=== PATIENT | female | born 1995 | race Caucasian/White ===

== ENCOUNTER 2022-03-28 15:24 | Emergency (ER) | payer OTHER ==
[2022-03-28 15:42] VITALS: BP 119/76; PULSE 70; RESP 20; TEMP 98.2; BMI 26.9
[2022-03-28] MEDS ORDERED: SODIUM CHLORIDE 1,000 ML IV STA (16:10)
[2022-03-28] MEDS ORDERED: ACETAMINOPHEN 500 MG TABLET (FP) PO ONE (16:10)
[2022-03-28] MEDS ORDERED: ACETAMINOPHEN 500 MG TABLET (FP) ONE (16:22)
[2022-03-28 17:23] LABS: URINE APPEARANCE CLEAR; URINE BILIRUBIN NEGATIVE (NEGATIVE); URINE COLOR YELLOW; URINE GLUCOSE (UA) NEGATIVE (NEGATIVE); URINE KETONE NEGATIVE (NEGATIVE); URINE LEUK ESTERASE NEGATIVE (NEGATIVE); URINE NITRITE NEGATIVE (NEGATIVE); URINE PROTEIN NEGATIVE (NEGATIVE); URINE UROBILINOGEN 0.2 mg/dL (0.2-1.0)
[2022-03-28 17:25] LABS: BASO % 1.1 % (0-2.0); EOS % 0.9 % (0-4.5); HEMOGLOBIN 13.5 GM/dL (10.7-15.3); LYMPH % 32.5 % (8-40); MCH 30.7 pg (25.7-33.7); MCHC 32.9 g/dl (32.0-36.0); MEAN CELL VOLUME 93.1 fl (80-96); MEAN PLT VOLUME 9.6 fl (7.5-11.1); MONO % 9.5 % (3.8-10.2); PLATELET COUNT 302 10^3/uL (134-434); RDW 14.4 % (11.6-15.6); WHITE BLOOD COUNT 7.6 K/mm3 (4.0-10.0)
[2022-03-28 17:26] LABS: HCG,QUALITATIVE URINE Negative
[2022-03-28 17:42] LABS: BLOOD UREA NITROGEN 7.5 mg/dL (7-18); CALCIUM 9.4 mg/dL (8.5-10.1)
[2022-03-28 17:46] LABS: CREATININE 0.6 mg/dL (0.55-1.3)
== END 2022-03-28 19:16 | disposition home or self-care (01) ==
LOC: JER 15:24
PROC: 3E0337Z Introduction of Electrolytic and Water Balance Substance into Peripheral Vein, Percutaneous Approach (ICD-10-PCS; principal; 2022-03-28)
DX: N20.0 Calculus of kidney (principal)
CPT/HCPCS: 36415; 74176-TC; 80048; 81003; 84703; 85025; 87086; 99285-25

== ENCOUNTER 2022-05-06 12:39 | Emergency (ER) | payer OTHER ==
[2022-05-06 12:44] VITALS: BP 121/84; PULSE 72; RESP 18; TEMP 98.6; BMI 27.4
[2022-05-06] MEDS ORDERED: KETOROLAC TROMETHAMINE 30 MG/1 ML VIAL IVPUSH ONE (14:55)
[2022-05-06] MEDS ORDERED: KETOROLAC TROMETHAMINE 30 MG/1 ML VIAL ONE (15:03)
[2022-05-06 15:40] LABS: HCG,QUALITATIVE URINE Negative
[2022-05-06 15:41] LABS: BASO % 0.6 % (0-2.0); EOS % 0.6 % (0-4.5); HEMATOCRIT 43.8 % (32.4-45.2); HEMOGLOBIN 14.2 GM/dL (10.7-15.3); LYMPH % 27.2 % (8-40); MCH 29.5 pg (25.7-33.7); MCHC 32.3 g/dl (32.0-36.0); MEAN CELL VOLUME 91.1 fl (80-96); MEAN PLT VOLUME 9.4 fl (7.5-11.1); MONO % 5.2 % (3.8-10.2); NEUT % 66.4 % (42.8-82.8); PLATELET COUNT 303 10^3/uL (134-434); RBC 4.81 M/mm3 (3.60-5.2); RDW 13.5 % (11.6-15.6); WHITE BLOOD COUNT 9.2 K/mm3 (4.0-10.0)
[2022-05-06 15:42] LABS: EPI CELLS 14 /uL (0-25.1); HYALINE CASTS 2 /uL (0-3.1); URINE APPEARANCE CLEAR; URINE BACTERIA 1376 /uL (0-1359); URINE BILIRUBIN NEGATIVE (NEGATIVE); URINE COLOR YELLOW; URINE GLUCOSE (UA) NEGATIVE (NEGATIVE); URINE KETONE TRACE (NEGATIVE); URINE LEUK ESTERASE NEGATIVE (NEGATIVE); URINE NITRITE NEGATIVE (NEGATIVE); URINE PROTEIN NEGATIVE (NEGATIVE); URINE RBC 52 /uL (0-23.9); URINE UROBILINOGEN 0.2 mg/dL (0.2-1.0); URINE WBC 26 /uL (0-25.8)
[2022-05-06 16:07] LABS: ALBUMIN 3.9 g/dl (3.4-5.0); CALCIUM 9.4 mg/dL (8.5-10.1)
[2022-05-06 16:08] LABS: BLOOD UREA NITROGEN 9.2 mg/dL (7-18)
[2022-05-06 16:11] LABS: CREATININE 0.6 mg/dL (0.55-1.3)
[2022-05-06 16:12] LABS: BILIRUBIN,TOTAL 0.5 mg/dL (0.2-1); TOT PROT 7.6 g/dl (6.4-8.2)
== END 2022-05-06 16:43 | disposition home or self-care (01) ==
LOC: JER 12:39
PROC: 3E0233Z Introduction of Anti-inflammatory into Muscle, Percutaneous Approach (ICD-10-PCS; principal; 2022-05-06)
DX: R00.2 Palpitations (principal); G89.29 Other chronic pain
CPT/HCPCS: 36415; 72100-TC-FY; 80053; 81003; 84484; 84703; 85025; 87086; 93005; 93010; 99285-25

== ENCOUNTER 2022-05-10 11:32 | Day surgery (SDC) | payer OTHER ==
[2022-05-10] MEDS ORDERED: KETOROLAC TROMETHAMINE 15 MG/ML VIAL IM ONE (12:17)
[2022-05-10] MEDS ORDERED: KETOROLAC TROMETHAMINE 30 MG/1 ML VIAL IVPUSH ONE (12:18)
[2022-05-10] MEDS ORDERED: ACETAMINOPHEN 1000 MG/100 ML BAG IVPB ONE (12:49)
[2022-05-10] MEDS ORDERED: ACETAMINOPHEN INJECTION 100 ML IVPB ONE (13:06)
[2022-05-10 13:51] LABS: BASO % 0.8 % (0-2.0); EOS % 0.4 % (0-4.5); HEMATOCRIT 41.4 % (32.4-45.2); HEMOGLOBIN 13.5 GM/dL (10.7-15.3); LYMPH % 17.2 % (8-40); MCH 29.6 pg (25.7-33.7); MCHC 32.7 g/dl (32.0-36.0); MEAN CELL VOLUME 90.7 fl (80-96); MEAN PLT VOLUME 9.6 fl (7.5-11.1); MONO % 5.4 % (3.8-10.2); NEUT % 76.2 % (42.8-82.8); PLATELET COUNT 310 10^3/uL (134-434); RBC 4.57 M/mm3 (3.60-5.2); RDW 13.4 % (11.6-15.6); WHITE BLOOD COUNT 8.9 K/mm3 (4.0-10.0)
[2022-05-10 14:20] LABS: BLOOD UREA NITROGEN 8.4 mg/dL (7-18); CALCIUM 9.2 mg/dL (8.5-10.1)
[2022-05-10 14:21] LABS: ALBUMIN 3.7 g/dl (3.4-5.0)
[2022-05-10 14:24] LABS: CREATININE 0.8 mg/dL (0.55-1.3)
[2022-05-10 14:25] LABS: BILIRUBIN,TOTAL 0.4 mg/dL (0.2-1)
[2022-05-10 14:30] LABS: INR 1.25 (0.83-1.09); PROTHROMBIN TIME (PATIENT) 14.4 SEC (9.7-13.0)
[2022-05-10] MEDS ORDERED: MIDAZOLAM HCL 2 MG/2 ML SINGLE DOSE VIAL ONE (17:48)
[2022-05-10] MEDS ORDERED: PROPOFOL 40 ML ONE (17:48)
[2022-05-10] MEDS ORDERED: LIDOCAINE HCL/PF 2% SDV 5ML VIAL ONE (18:35)
[2022-05-10] MEDS ORDERED: GLYCOPYRROLATE 0.2 MG/1 ML VIAL ONE ×2 (18:35→18:45)
[2022-05-10] MEDS ORDERED: GENTAMICIN SO4 80 MG/2 ML VIAL ONE (18:36)
[2022-05-10] MEDS ORDERED: ceFAZolin SODIUM 1 GM VIAL ONE (18:36)
[2022-05-10] MEDS ORDERED: GENTAMICIN 80MG PREMIX BAG IVPB ONE (18:39)
[2022-05-10] MEDS ORDERED: ceFAZolin SODIUM 1 GM VIAL IVPB ONE ×2 (18:39)
[2022-05-10] MEDS ORDERED: KETOROLAC TROMETHAMINE 30 MG/1 ML VIAL ONE (18:45)
[2022-05-10] MEDS ORDERED: DEXAMETHASONE SOD PHOSPHATE 4 MG/1 ML VIAL ONE (18:45)
[2022-05-10] MEDS ORDERED: ONDANSETRON 4 MG/2 ML VIAL IVPUSH PRN (19:44)
[2022-05-10] MEDS ORDERED: LACTATED RINGERS SOLUTION 1,000 ML IV SCH (19:45)
[2022-05-10 20:52] VITALS: BMI 26.9
[2022-05-10] MEDS: ACETAMINOPHEN 325 MG TABLET (FP) PO PRN (21:54)
[2022-05-11] MEDS: ACETAMINOPHEN 325 MG TABLET (FP) PO PRN (01:40)
[2022-05-11 06:55] VITALS: RESP 18
[2022-05-11 10:09] VITALS: BP 113/71; PULSE 51; TEMP 98
[2022-05-20 15:07] LABS: CA OXALATE MONOHYDR. 70 % (.); SIZE 4x3 mm (.); WEIGHT 23 mg (.)
== END 2022-05-11 13:54 | disposition home or self-care (01) ==
LOC: JOR 11:32 → JASUSAT 18:24 → J5S 20:19 → JASUSAT 05-11 13:54
PROVIDERS: ATTEND Urology
PROC: 3E033GC Introduction of Other Therapeutic Substance into Peripheral Vein, Percutaneous Approach (ICD-10-PCS; principal; 2022-05-10 17:00)
DX: N13.2 Hydronephrosis with renal and ureteral calculous obstruction (principal)
CPT/HCPCS: 36415; 74176-TC; 76000-TC-FY; 80053; 82360; 82962; 84703; 85025; 85610; 86850; 86900; 86901; 88300-TC; 94760; 99285-25; C2617; C9803-CS; U0003; U0005

== ENCOUNTER 2024-04-20 13:45 | Emergency (ER) | payer OTHER ==
[2024-04-20 13:52] VITALS: RESP 18
[2024-04-20] MEDS ORDERED: methylPREDNISolone NA SUCC 125 MG/2 ML VIAL ONE (14:39)
[2024-04-20] MEDS ORDERED: FAMOTIDINE 20 MG/50 ML IVPB 20 MG/50 ML MG IVPB ONE (14:39)
[2024-04-20] MEDS: SODIUM CHLORIDE 1,000 ML IV STA (15:00)
[2024-04-20] MEDS: FAMOTIDINE 20 MG/50 ML IVPB 20 MG/50 ML MG IVPB ONE (15:01)
[2024-04-20] MEDS: methylPREDNISolone NA SUCC 125 MG/2 ML VIAL IVPB ONE (15:01)
[2024-04-20 15:50] VITALS: BP 128/79; PULSE 60; TEMP 98.3
== END 2024-04-20 16:08 | disposition home or self-care (01) ==
LOC: JERFT 13:45 → JER 13:45 → JERFT 16:08
PROC: 3E033GC Introduction of Other Therapeutic Substance into Peripheral Vein, Percutaneous Approach (ICD-10-PCS; principal; 2024-04-20)
PROC: 3E033GC Introduction of Other Therapeutic Substance into Peripheral Vein, Percutaneous Approach (ICD-10-PCS; 2024-04-20)
PROC: 3E033GC Introduction of Other Therapeutic Substance into Peripheral Vein, Percutaneous Approach (ICD-10-PCS; 2024-04-20)
DX: L50.0 Allergic urticaria (principal); R07.0 Pain in throat
CPT/HCPCS: 96365; 96375; 99284-25

== ENCOUNTER 2024-04-21 04:04 | Emergency (ER) | payer OTHER ==
[2024-04-21 04:17] VITALS: BP 138/97; PULSE 66; RESP 18; TEMP 98.4
[2024-04-21] MEDS ORDERED: predniSONE 20 MG TABLET (UD) ONE (05:08)
[2024-04-21] MEDS ORDERED: diphenhydrAMINE HCL 25 MG CAPSULE (FP) PO ONE (05:08)
[2024-04-21] MEDS ORDERED: predniSONE 10 MG TABLET (UD) ONE (05:09)
[2024-04-21] MEDS: diphenhydrAMINE HCL 25 MG CAPSULE (FP) PO ONE (05:17)
[2024-04-21] MEDS: predniSONE 20 MG TABLET (UD) PO ONE (05:17)
== END 2024-04-21 05:44 | disposition home or self-care (01) ==
LOC: JER 04:04
DX: T78.40XD Allergy, unspecified, subsequent encounter (principal); R21 Rash and other nonspecific skin eruption; L29.9 Pruritus, unspecified; L50.0 Allergic urticaria
CPT/HCPCS: 99283-25

== ENCOUNTER 2025-01-18 07:37 | Emergency (ER) | payer OTHER ==
[2025-01-18 07:52] VITALS: BP 112/77; PULSE 65; RESP 20; TEMP 98.6; BMI 30.2
[2025-01-18] MEDS ORDERED: FAMOTIDINE 20 MG TABLET ONE (08:23)
[2025-01-18] MEDS ORDERED: LORATADINE 10 MG TABLET ONE (08:23)
[2025-01-18] MEDS: FAMOTIDINE 20 MG TABLET PO ONE (08:27)
[2025-01-18] MEDS: LORATADINE 10 MG TABLET PO ONE (08:27)
[2025-01-18 12:58] LABS: HIV INTERPRETATION NEGATIVE (NEGATIVE)
[2025-01-18 12:59] LABS: HCV DIAGNOSTIC IN-HOUSE W/RFLX NON-REACTIVE (NONREACTIVE)
== END 2025-01-18 09:00 | disposition home or self-care (01) ==
LOC: JERFT 07:37
DX: L50.0 Allergic urticaria (principal); R22.1 Localized swelling, mass and lump, neck
CPT/HCPCS: 36415; 86803; 87389; 99283-25

== ENCOUNTER 2025-01-20 17:40 | Emergency (ER) | payer OTHER ==
[2025-01-20 17:54] VITALS: BP 114/76; PULSE 73; RESP 20; TEMP 98.6; BMI 30.2
== END 2025-01-20 18:24 | disposition home or self-care (01) ==
LOC: JERFT 17:40 → JER 17:40 → JERFT 18:24
DX: L50.9 Urticaria, unspecified (principal); R21 Rash and other nonspecific skin eruption
CPT/HCPCS: 99283-25